=== PATIENT | male | born 1975 | race Caucasian/White ===

== ENCOUNTER → 2016-09-08 | Outpatient (REF) | payer MEDICARE, MEDICAID | LOC: M LAB REF 12:03 | PROVIDERS: ATTEND Physician Assistant Medical | DX: A09 Infectious gastroenteritis and colitis, unspecified (principal) ==

== ENCOUNTER 2017-07-25 11:44 | Emergency (ER) | payer MEDICARE, MEDICAID ==
[2017-07-25] MEDS ORDERED: LIDOCAINE 2% MDV 20 ML VIAL As Ordered (12:57)
[2017-07-25] MEDS: LIDOCAINE 2% MDV 20 ML VIAL SC (13:00)
== END 2017-07-25 13:46 | disposition home or self-care (01) ==
LOC: M ED 11:44
DX: S61.213A Laceration without foreign body of left middle finger without damage to nail, initial encounter (principal); S61.215A Laceration without foreign body of left ring finger without damage to nail, initial encounter; W31.89XA Contact with other specified machinery, initial encounter; Y92.099 Unspecified place in other non-institutional residence as the place of occurrence of the external cause; Y93.9 Activity, unspecified; Z79.899 Other long term (current) drug therapy
CPT/HCPCS: 73130

== ENCOUNTER → 2021-06-22 | Outpatient (REF) | payer MEDICARE, OTHER ==
[~2021-06-22] MED LIST: IBUP-1022 PO; MULT1TAB10 PO
== END ==
LOC: M LAB REF 16:41
PROVIDERS: ATTEND Physician Assistant Medical
DX: Z11.9 Encounter for screening for infectious and parasitic diseases, unspecified (principal)

== ENCOUNTER 2021-09-02 15:39 | Emergency (ER) | payer MEDICARE, MEDICAID ==
[~2021-09-02] VITALS: Ht 172.7 cm; Wt 90.8 kg
[2021-09-02 15:41] VITALS: BP 150/96
[2021-09-02] MEDS ORDERED: BACI1CAP4 PO (16:00)
== END 2021-09-02 18:07 | disposition left against medical advice (07) ==
LOC: M ED 15:39
DX: Z53.21 Procedure and treatment not carried out due to patient leaving prior to being seen by health care provider (principal)

== ENCOUNTER → 2021-09-07 | Outpatient (REF) | payer MEDICARE, MEDICAID ==
[~2021-09-07] MED LIST changes: +BACI1CAP4 PO
[2021-09-07 19:38] LABS: BASO % 0.6 % (0.0-1.0); EOS # 0.1 10^3/uL (0.0-0.5); EOS % 0.7 % (0.0-3.0); HEMATOCRIT 46.8 % (42.0-52.0); HEMOGLOBIN 15.8 g/dl (13.5-17.5); LYMPH # 1.5 10^3/uL (1.5-5.0); MEAN CORPUSCULAR HEMOGLOBIN 29.2 pg (27.0-33.0); MEAN CORPUSCULAR HGB CONC 33.8 g/dl (32.0-36.5); MEAN CORPUSCULAR VOLUME 86.5 fl (80.0-96.0); MONO # 0.7 10^3/uL (0.0-0.8); MONO % 9.2 % (2.0-8.0); NEUTROPHILS # 4.9 10^3/uL (1.5-8.5); NEUTROPHILS % 68.1 % (36.0-66.0); PLATELET COUNT, AUTOMATED 289 10^3/uL (150-450); RED BLOOD COUNT 5.41 10^6/uL (4.30-6.10); WHITE BLOOD COUNT 7.2 10^3/uL (4.0-10.0)
[2021-09-07 20:16] LABS: ALBUMIN 4.3 GM/DL (3.2-5.2); ALT/SGPT 39 U/L (12-78); BILIRUBIN,TOTAL 0.4 MG/DL (0.2-1.0); BLOOD UREA NITROGEN 14 MG/DL (7-18); CALCIUM LEVEL 9.2 MG/DL (8.5-10.1); CARBON DIOXIDE LEVEL 28 MEQ/L (21-32); CHLORIDE LEVEL 104 MEQ/L (98-107); CREATININE FOR GFR 0.92 MG/DL (0.70-1.30); GLOMERULAR FILTRATION RATE > 60.0 (>60); GLUCOSE, FASTING 92 MG/DL (70-100); POTASSIUM SERUM 4.3 MEQ/L (3.5-5.1); SODIUM LEVEL 137 MEQ/L (136-145); TOTAL PROTEIN 7.6 GM/DL (6.4-8.2)
== END ==
LOC: M LAB REF 19:04
PROVIDERS: ATTEND Family Medicine Addiction Medicine
DX: R10.9 Unspecified abdominal pain (principal)

== ENCOUNTER → 2023-01-20 | Outpatient (REF) | payer MEDICARE, MEDICAID | LOC: M LAB REF 21:43 | PROVIDERS: ATTEND Physician Assistant | DX: M79.10 Myalgia, unspecified site (principal) ==

== ENCOUNTER → 2024-01-16 | Outpatient (CLI) | payer MEDICARE, MEDICAID ==
[2024-01-16 13:39] LABS: HEMATOCRIT 46.4 % (42.0-52.0); HEMOGLOBIN 15.8 g/dl (13.5-17.5); MEAN CORPUSCULAR HEMOGLOBIN 29.5 pg (27.0-33.0); MEAN CORPUSCULAR HGB CONC 34.1 g/dl (32.0-36.5); MEAN CORPUSCULAR VOLUME 86.7 fl (80.0-96.0); PLATELET COUNT, AUTOMATED 274 10^3/uL (150-450); RED BLOOD COUNT 5.35 10^6/uL (4.30-6.10); WHITE BLOOD COUNT 9.3 10^3/uL (4.0-10.0)
[2024-01-16 14:07] LABS: PROSTATIC SPECIFIC AG MONITOR 1.36 NG/ML (< 4.00)
[2024-01-16 14:10] LABS: ALKALINE PHOSPHATASE 73 U/L (46-116); ALT/SGPT 30 U/L (7.0-40); AST/SGOT 13 U/L (<34); BILIRUBIN,TOTAL 0.5 MG/DL (0.3-1.2); BLOOD UREA NITROGEN 13 MG/DL (9-23); CALCIUM LEVEL 9.4 MG/DL (8.5-10.1); CARBON DIOXIDE LEVEL 28 MMOL/L (20-31); CHLORIDE LEVEL 106 MMOL/L (98-107); CHOLESTEROL LEVEL 137 MG/DL (<200); CHOLESTEROL RISK RATIO 3.62 (<5); CREATININE FOR GFR 0.82 MG/DL (0.70-1.30); GLOMERULAR FILTRATION RATE > 60.0 (>60); GLUCOSE, FASTING 111 MG/DL (60-100); HDL CHOLESTEROL 37.8 MG/DL (>40); LDL CHOLESTEROL 69.4 MG/DL (<100); NON-HDL-C 99.2 MG/DL; POTASSIUM SERUM 4.3 MMOL/L (3.5-5.1); SODIUM LEVEL 139 MMOL/L (136-145); TOTAL PROTEIN 7.3 G/DL (5.7-8.2); TRIGLYCERIDES LEVEL 149 MG/DL (<150)
[2024-01-16 14:11] LABS: TOTAL 25(OH) VITAMIN D 26.2 NG/ML (20.0-100.0)
[2024-01-16 14:12] LABS: TESTOSTERONE 217 NG/DL (241-827)
== END ==
LOC: M RAD 12:40
PROVIDERS: ATTEND Family Medicine
DX: R53.83 Other fatigue (principal); I10 Essential (primary) hypertension; M19.90 Unspecified osteoarthritis, unspecified site; Z79.899 Other long term (current) drug therapy; R97.20 Elevated prostate specific antigen [PSA]

== ENCOUNTER → 2024-08-22 | Outpatient (CLI) | payer MEDICARE, MEDICAID ==
[2024-08-22 13:47] LABS: HEMATOCRIT 43.9 % (42.0-52.0); HEMOGLOBIN 14.9 g/dl (13.5-17.5); MEAN CORPUSCULAR HEMOGLOBIN 29.8 pg (27.0-33.0); MEAN CORPUSCULAR HGB CONC 33.9 g/dl (32.0-36.5); MEAN CORPUSCULAR VOLUME 87.8 fl (80.0-96.0); PLATELET COUNT, AUTOMATED 255 10^3/uL (150-450); WHITE BLOOD COUNT 6.4 10^3/uL (4.0-10.0)
[2024-08-22 14:10] LABS: PROSTATIC SPECIFIC AG MONITOR 1.76 NG/ML (< 4.00)
[2024-08-22 14:12] LABS: ALKALINE PHOSPHATASE 62 U/L (40-129); ALT/SGPT 31 U/L (7.0-40); AST/SGOT 18 U/L (<34); BILIRUBIN,TOTAL 0.5 MG/DL (0.3-1.2); BLOOD UREA NITROGEN 18 MG/DL (9-23); CARBON DIOXIDE LEVEL 29 MMOL/L (20-31); CHLORIDE LEVEL 108 MMOL/L (98-107); CHOLESTEROL LEVEL 137 MG/DL (<200); CHOLESTEROL RISK RATIO 3.82 (<5); CREATININE FOR GFR 0.89 MG/DL (0.70-1.30); GLOMERULAR FILTRATION RATE > 60.0 (>60); GLUCOSE, FASTING 107 MG/DL (60-100); HDL CHOLESTEROL 35.8 MG/DL (>40); LDL CHOLESTEROL 91.4 MG/DL (<100); NON-HDL-C 101.2 MG/DL; POTASSIUM SERUM 4.2 MMOL/L (3.5-5.1); SODIUM LEVEL 141 MMOL/L (136-145); TOTAL PROTEIN 7.3 G/DL (5.7-8.2); TRIGLYCERIDES LEVEL 49 MG/DL (<150)
[2024-08-22 14:14] LABS: THYROID STIMULATING HORMONE 0.947 uIU/ML (0.55-4.78)
[2024-08-22 14:15] LABS: TESTOSTERONE 196 NG/DL (241-827)
[2024-08-22 14:28] LABS: HEMOGLOBIN A1c 5.5 % (4.0-6.0)
== END ==
LOC: M LAB 13:24
PROVIDERS: ATTEND Family Medicine
DX: R53.83 Other fatigue (principal); I10 Essential (primary) hypertension; E03.9 Hypothyroidism, unspecified; Z79.899 Other long term (current) drug therapy